=== PATIENT | male | born 1985 | race Caucasian/White ===

== ENCOUNTER 2017-10-21 20:12 | Emergency (ER) | payer OTHER ==
[~2017-10-21] VITALS: Ht 180.3 cm; Wt 135.2 kg
[2017-10-21 20:29] VITALS: Ht 180.3 cm; Wt 135.2 kg
[2017-10-21 22:07] VITALS: BP 174/81
== END 2017-10-21 22:07 | disposition home or self-care (01) ==
LOC: ED 20:12
DX: L02.415 Cutaneous abscess of right lower limb (principal)
CPT/HCPCS: J2001